=== PATIENT | male | born 1975 | race Caucasian/White ===

== ENCOUNTER 2018-01-29 06:36 | Emergency (ER) | payer OTHER ==
[2018-01-29 06:49] VITALS: BP 150/94; PULSE 75; RESP 16; TEMP 98.2
--- NOTE | 2018-01-29 07:44 | ED ---
General Adult HPI - General Chief complaint: Extremity Injury, Lower Stated complaint: Ankle Injury Time Seen by Provider: 01/29/18 07:00 Source: patient, RN notes reviewed Mode of arrival: ambulatory Limitations: no limitations - History of Present Illness Initial comments: This is a 42-year-old male who presents emergency Department complaining of left lateral ankle pain. Patient states last night he slid into a base and hurt his left ankle. Patient stated he was unable to apply weight at that time and over night it swelled up and got worse. Patient states this morning he had use crutches to get around decided come to the emergency department. Patient denies any knee pain he denies any foot pain and denies any hip pain. She denies any other injury. - Related Data Previous Rx's Medication Instructions Recorded Hydrocodone/Acetaminophen [Wilson 1 each PO Q4HR PRN #14 tab 01/29/18 5-325] Ibuprofen [Motrin] 600 mg PO Q6HR PRN #20 tab 01/29/18 Allergies Allergy/AdvReac Type Severity Reaction Status Date / Time No Known Allergies Allergy Verified 01/29/18 06:49 Review of Systems ROS Statement: Those systems with pertinent positive or pertinent negative responses have been documented in the HPI. ROS Other: All systems not noted in ROS Statement are negative. Past Medical History Past Medical History: No Reported History History of Any Multi-Drug Resistant Organisms: None Reported Past Surgical History: No Surgical Hx Reported Past Psychological History: No Psychological Hx Reported Smoking Status: Never smoker Past Alcohol Use History: Daily Past Drug Use History: None Reported General Exam - General Exam Comments Initial Comments: GENERAL Patient is well-developed and well-nourished. Patient is in mild distress. EYES Patient's pupils are equal and round. Extraocular motion is intact SKIN Unremarkable NEURO The patient is alert and oriented 3 PYSCH Patient has normal interpersonal interactions. MUSCULOSKELETAL Patient's left ankle is tender to palpation and also swollen. Patient has no tenderness base of the fifth metatarsal he has no tenderness of the proximal leg. Limitations: no limitations Course Vital Signs 01/29/18 06:46 Temperature 98.2 F Pulse Rate 75 Respiratory 16 Rate Blood Pressure 150/94 O2 Sat by Pulse 96 Oximetry Procedures - Orthopedic Splinting/Casting Injury #1 Side: left Lower Extremity Injury Location: short leg Lower Extremity Immobilizer: posterior splint Medical Decision Making - Medical Decision Making X-ray of the ankle shows no acute fracture. Splint was applied. Disposition Clinical Impression: Left ankle sprain Disposition: HOME SELF-CARE Condition: Good Instructions: Ankle Sprain (ED) Prescriptions: Hydrocodone/Acetaminophen [Wilson 5-325] 1 each PO Q4HR PRN #14 tab PRN Reason: Pain Ibuprofen [Motrin] 600 mg PO Q6HR PRN #20 tab PRN Reason: For pain Is patient prescribed a controlled substance at d/c from ED?: Yes When asked, does pt state using other controlled substances?: No If prescribed controlled substance>3 days was MAPS reviewed?: Prescribed <3 Days If opioid is for acute pain is fill amount 7 days or less?: Yes If Rx opioid, was Start Talking consent form obtained?: Yes Referrals: None,Stated [Primary Care Provider] - 1-2 days Time of Disposition: 08:39
--- NOTE | 2018-01-29 07:54 | XR ---
EXAMINATION TYPE: XR ankle complete LT , 3 VIEWS DATE OF EXAM ORDERED: 01/29/2018 HISTORY: Pain. COMPARISON: None. FINDINGS: No fracture, dislocation or ankle joint effusion is identified. IMPRESSION: NORMAL LEFT ANKLE.
[2018-01-29] MEDS ORDERED: MORPHINE SULFATE 2 MG/ML SYRINGE IM STA (08:37)
[2018-01-29] MEDS ORDERED: KETOROLAC 60 MG/2 ML VIAL IM STA (08:37)
== END 2018-01-29 08:59 | disposition home or self-care (01) ==
LOC: EC 06:36
DX: S93.402A Sprain of unspecified ligament of left ankle, initial encounter (principal); W22.8XXA Striking against or struck by other objects, initial encounter; Y93.64 Activity, baseball; Y92.89 Other specified places as the place of occurrence of the external cause
CPT/HCPCS: 73610; 99283; 29515; 96372 ×2; J1885; J2270

== ENCOUNTER → 2021-05-23 | Outpatient (CLI) | payer OTHER | END | disposition home or self-care (01) | LOC: LABWHC1 14:42 | PROVIDERS: ATTEND Physician Assistant Medical | DX: Z20.822 Contact with and (suspected) exposure to COVID-19 (principal) | CPT/HCPCS: 87635 ==